=== PATIENT | female | born 1980 | race Caucasian/White ===

== ENCOUNTER 2017-12-26 12:03 | Emergency (ER) | payer BC ==
[~2017-12-26] VITALS: Ht 165.1 cm; Wt 50.6 kg
[2017-12-26 12:38] LABS: BASOPHILS # (AUTO) 0.04 x10^3/uL (0-0.1); BASOPHILS % (AUTO) 0 % (0-1); EOSINOPHILS % (AUTO) 0 % (1-7); LYMPHOCYTES # (AUTO) 1.61 x10^3/uL (1-3.4); LYMPHOCYTES % (AUTO) 18 % (22-44); MD NO; MEAN CORPUSCULAR HEMOGLOBIN 27.2 pg (27.0-34.8); MEAN CORPUSCULAR HGB CONC 33.2 g/dL (32.4-35.8); MEAN CORPUSCULAR VOLUME 82.1 fL (80-100); MEAN PLATELET VOLUME 8.1 fL (7.4-10.4); MONOCYTES # (AUTO) 0.68 x10^3/uL (0.2-0.8); MONOCYTES % (AUTO) 8 % (2-9); NEUTROPHILS # (AUTO) 6.62 x10^3/uL (1.8-6.8); NEUTROPHILS % (AUTO) 74 % (42-75); PLATELET COUNT 233 x10^3/uL (130-400); RED BLOOD COUNT 4.92 x10^6/uL (3.82-5.3); RED CELL DISTRIBUTION WIDTH 13.1 % (9.6-15.2)
[2017-12-26 12:51] LABS: ALANINE AMINOTRANSFERASE 23 U/L (12-78); ALBUMIN 4.4 g/dL (3.4-5.0); ANION GAP 13 mmol/L (5-15); CALCIUM 9.3 mg/dL (8.5-10.1); CHLORIDE 105 mmol/L (98-107); CREATININE 0.92 mg/dL (0.55-1.02)
[2017-12-26 12:55] LABS: ALKALINE PHOSPHATASE 52 U/L (45-117); BILIRUBIN,TOTAL 0.7 mg/dL (0.2-1.0); FREE T4 (FREE THYROXINE) 1.35 ng/dL (0.76-1.46); TOTAL PROTEIN 8.4 g/dL (6.4-8.2); TROPONIN I 0.024 ng/mL (0.000-0.045)
[2017-12-26] MEDS ORDERED: PLEASE ENTER ALLERGIES MC SCH (13:00)
[2017-12-26] MEDS ORDERED: SODIUM CHLORIDE 0.9% 1,000ML IVBOLUS ONE ×2 (13:00→14:00)
[2017-12-26] MEDS ORDERED: LORazepam 2 MG/ML, 1ML IVPush ONE (13:30)
[2017-12-26] MEDS ORDERED: LORazepam 2 MG/ML, 1ML ONE (13:33)
[2017-12-26 15:20] VITALS: BP 103/79
== END 2017-12-26 16:02 | disposition home or self-care (01) ==
LOC: ED 14:48
DX: R55 Syncope and collapse (principal); R07.9 Chest pain, unspecified; R20.2 Paresthesia of skin; R42 Dizziness and giddiness; R06.02 Shortness of breath
CPT/HCPCS: 36415; 71046; 80053; 84439; 84443; 84484; 84703; 85025; 85379; 93005; 96361; 96374; 99285; J2060; J7030